=== PATIENT | female | born 1990 | race Caucasian/White ===

== ENCOUNTER 2024-10-07 06:25 | Day surgery (SDC) | payer OTHER, SELFPAY ==
[2024-09-25 08:51] LABS: Urine Albumin Negative (Neg - Trace); Urine Bilirubin Negative (Negative); Urine Character Clear (Clear); Urine Color Yellow; Urine Glucose Negative (Negative); Urine Ketone Negative (Negative); Urine Leukocyte Negative (Negative); Urine Nitrite Negative (Negative); Urine Occult Blood Negative (Negative); Urine Specific Gravity 1.025 (<1.030); Urine Urobilinogen Negative (Neg - 1+)
[2024-09-25 13:15] VITALS: BMI 28.5
[2024-10-07] MEDS: TRANSDERM-SCOP 1 PATCH TRANSDERM (07:31)
[2024-10-07 07:33] VITALS: BP 136/81; BMI 28.5
[2024-10-07 09:32] VITALS: BP 100/66
[2024-10-07 09:46] VITALS: BP 103/73
[2024-10-07 10:00] VITALS: BP 102/77
[2024-10-07 10:15] VITALS: BP 105/72
== END 2024-10-07 10:53 | disposition home or self-care (01) ==
LOC: SDS 06:25
PROVIDERS: ATTENDING PHYSICIAN Urology; FAMILY PHYSICIAN Family Medicine
DX: T83.190A Other mechanical complication of urinary electronic stimulator device, initial encounter (principal); Y73.2 Prosthetic and other implants, materials and accessory gastroenterology and urology devices associated with adverse incidents; N39.41 Urge incontinence; R33.9 Retention of urine, unspecified
CPT/HCPCS: 64590; 64561; C1767; 36415; 72170; 76000; 81003

== ENCOUNTER 2025-05-05 06:29 | Day surgery (SDC) | payer OTHER, SELFPAY ==
[2025-05-05 08:15] VITALS: BMI 33.9
[2025-05-05 08:35] VITALS: BP 128/66
[2025-05-05 08:37] VITALS: BMI 33.9
[2025-05-05] MEDS: NORMOSOL-R/PLASMALYTE-A 1000 IV (08:40)
[2025-05-05 09:34] LABS: Hematocrit 36.9 % (37.0-47.0); Hemoglobin 12.8 g/dL (12.0-16.0); Mean Corp Hgb Conc. 34.7 g/dL (33.0-37.0); Mean Corpuscular Hgb 29.6 pg (27.0-31.0); Mean Corpuscular Volume 85.2 fL (81.0-99.0); Mean Platelet Volume 11.4 fL (7.4-10.4); Platelet Count 225 10^3/uL (130-400); Red Blood Cell Count 4.33 10^6/uL (4.20-5.40); Red Cell Dist. Width 12.2 % (11.5-14.5)
[2025-05-05] MEDS: TRANSDERM-SCOP 1 PATCH TRANSDERM (09:57)
[2025-05-05 10:58] VITALS: BP 83/69
[2025-05-05 11:00] VITALS: BP 101/71
[2025-05-05 11:15] VITALS: BP 110/79
[2025-05-05] MEDS: MOTRIN 600 MG PO (11:47)
== END 2025-05-05 11:54 | disposition home or self-care (01) ==
LOC: SDS 06:29
PROVIDERS: ATTENDING PHYSICIAN Urology
DX: T85.121A Displacement of implanted electronic neurostimulator of peripheral nerve electrode (lead), initial encounter (principal); N39.41 Urge incontinence; Y82.8 Other medical devices associated with adverse incidents
CPT/HCPCS: 64585; 72170; 76000; 85027